=== PATIENT | male | born 2005 | race Hispanic/Latino ===

== ENCOUNTER 2025-05-04 18:43 | Emergency (ER) | payer SELFPAY | END 2025-05-04 19:05 | disposition home or self-care (01) | LOC: ERS 18:43 | DX: K21.9 Gastro-esophageal reflux disease without esophagitis (principal) | CPT/HCPCS: 99281 ==

== ENCOUNTER 2025-05-09 17:49 | Emergency (ER) | payer SELFPAY | END 2025-05-09 18:12 | disposition home or self-care (01) | LOC: ERS 17:49 | DX: K21.9 Gastro-esophageal reflux disease without esophagitis (principal) | CPT/HCPCS: 99283 ==

== ENCOUNTER 2025-05-10 10:48 | Emergency (ER) | payer SELFPAY | END 2025-05-10 11:12 | disposition home or self-care (01) | LOC: ERS 10:48 | DX: Z00.00 Encounter for general adult medical examination without abnormal findings (principal); K21.9 Gastro-esophageal reflux disease without esophagitis; Z79.899 Other long term (current) drug therapy | CPT/HCPCS: 99283 ==